=== PATIENT | female | born 1970 ===

== ENCOUNTER → 2020-10-02 | Outpatient (CLI) | payer OTHER ==
--- NOTE | 2020-10-02 14:57 | US ---
EXAMINATION TYPE: US kidneys/renal and bladder DATE OF EXAM: 10/02/2020 COMPARISON: NONE CLINICAL HISTORY: R31.9 Hematuria, unspecified. Pt states microscopic hematuria EXAM MEASUREMENTS: Right Kidney: 10.3 x 5.0 x 5.2 cm Left Kidney: 10.5 x 6.0 x 5.2 cm Right Kidney: No evidence of hydro, appeared wnl Left Kidney: No evidence of hydro, appeared wnl Bladder: wnl Bilateral Jets seen: No Incidental findings of gallstones There is no evidence for hydronephrosis at this point in time. No nephrolithiasis is seen. No mary anne s are identified. The urinary bladder is anechoic. IMPRESSION: 1. No hydronephrosis. 2. Cholelithiasis.
== END | disposition home or self-care (01) ==
LOC: RADUSWWP 14:04
PROVIDERS: ATTEND Urology
DX: R31.29 Other microscopic hematuria (principal); K80.20 Calculus of gallbladder without cholecystitis without obstruction
CPT/HCPCS: 76770